=== PATIENT | female | born 1980 | race African-American/Black ===

== ENCOUNTER 2022-01-17 23:10 | Emergency (ER) | payer OTHER ==
[~2022-01-17] VITALS: Ht 157.5 cm; Wt 57.0 kg
[2022-01-17 23:13] VITALS: BP 134/98
[2022-01-17] MEDS ORDERED: ZIPRASIDONE MESYLATE 20MG/VIAL IM ONE (23:30)
== END 2022-01-17 23:45 ==
LOC: ER 23:28
DX: F10.129 Alcohol abuse with intoxication, unspecified (principal); F31.9 Bipolar disorder, unspecified; R45.1 Restlessness and agitation; R03.0 Elevated blood-pressure reading, without diagnosis of hypertension; Y90.9 Presence of alcohol in blood, level not specified
CPT/HCPCS: 99283; J3486